=== PATIENT | male | born 1950 | race Caucasian/White ===

== ENCOUNTER 2018-10-02 10:59 | Emergency (ER) | payer MEDICARE, OTHER ==
[2018-10-02 11:32] VITALS: BP 134/73
--- NOTE | 2018-10-02 12:00 | ED ---
Respiratory - HPI Summary HPI Summary: 68 yr old male with the complaint of sore throat and coughing. Coughing productive of some yellow sputum. No drooling, no SOB. He has some chills but no fever. Onset of symptoms two days ago. - History of Current Complaint Chief Complaint: UCGeneralIllness Stated Complaint: HEADACHE,CONGESTION,SORE THROAT Time Seen by Provider: 10/02/18 11:44 Pain Intensity: 3 - Allergy/Home Medications Allergies/Adverse Reactions: Allergies Allergy/AdvReac Type Severity Reaction Status Date / Time cephalexin Allergy Swelling Verified 10/02/18 11:28 ciprofloxacin Allergy Swelling Verified 10/02/18 11:28 cobalt Allergy Swelling Verified 10/02/18 11:28 metronidazole Allergy Swelling Verified 10/02/18 11:28 potassium Allergy Swelling Verified 10/02/18 11:28 Home Medications: Home Medications Ibuprofen 400 mg PO Q5H 10/02/18 [History Confirmed 10/02/18] Omeprazole 20 mg PO DAILY 10/02/18 [History Confirmed 10/02/18] Propranolol HCl 80 mg PO DAILY 10/02/18 [History Confirmed 10/02/18] guaiFENesin [Mucinex] 600 mg PO DAILY 10/02/18 [History Confirmed 10/02/18] PMH/Surg Hx/FS Hx/Imm Hx Endocrine/Hematology History: Denies: Hx Diabetes, Hx Thyroid Disease Cardiovascular History: Denies: Hx Hypertension Respiratory History: Denies: Hx Asthma - Surgical History Surgery Procedure, Year, and Place: fingers, hernia, tonsils Infectious Disease History: No Infectious Disease History: Denies: Traveled Outside the [place] in Last 30 Days - Family History Known Family History: Positive: None - Social History Occupation: Employed Full-time Alcohol Use: Daily Substance Use Type: Reports: None Smoking Status (MU): Never Smoked Tobacco Review of Systems Positive: Sore Throat Positive: Cough All Other Systems Reviewed And Are Negative: Yes Physical Exam Triage Information Reviewed: Yes Vital Signs On Initial Exam: Initial Vitals Temp Pulse Resp BP Pulse Ox 97.4 F 64 15 134/73 98 10/02/18 11:21 10/02/18 11:21 10/02/18 11:21 10/02/18 11:21 10/02/18 11:21 Vital Signs Reviewed: Yes Appearance: Positive: Well-Appearing, No Pain Distress Skin: Positive: Warm, Skin Color Reflects Adequate Perfusion Head/Face: Positive: Normal Head/Face Inspection Eyes: Positive: EOMI ENT: Positive: Pharyngeal erythema, TMs normal. Negative: Nasal congestion, Nasal drainage Neck: Positive: Nontender Respiratory/Lung Sounds: Positive: Clear to Auscultation, Breath Sounds Present Cardiovascular: Positive: RRR. Negative: Murmur Abdomen Description: Positive: Nontender Musculoskeletal: Positive: Strength/ROM Intact Neurological: Positive: Sensory/Motor Intact, Alert, Oriented to Person Place, Time, CN Intact II-III Psychiatric: Positive: Normal - Helper Coma Scale Best Eye Response: 4 - Spontaneous Best Motor Response: 6 - Obeys Commands Best Verbal Response: 5 - Oriented Coma Scale Total: 15 Diagnostics - Vital Signs Vital Signs Temp Pulse Resp BP Pulse Ox 10/02/18 11:21 97.4 F 64 15 134/73 98 - Laboratory Lab Statement: Any lab studies that have been ordered have been reviewed, and results considered in the medical decision making process. Disposition - Course Course Of Treatment: 68 yr old male with URI symptoms. DC home. FU with PMD. - Diagnoses Provider Diagnoses: Upper respiratory infection Discharge - Sign-Out/Discharge Documenting (check all that apply): Patient Departure All imaging exams completed and their final reports reviewed: No Studies - Discharge Plan Condition: Good Disposition: HOME Patient Education Materials: Upper Respiratory Infection (ED) Referrals: Beltran Falcon MD [Primary Care Provider] - - Billing Disposition and Condition Condition: GOOD Disposition: Home
== END 2018-10-02 12:35 | disposition home or self-care (01) ==
LOC: UCCORT 10:59
DX: J06.9 Acute upper respiratory infection, unspecified (principal); L23.0 Allergic contact dermatitis due to metals; Z88.1 Allergy status to other antibiotic agents; Z88.8 Allergy status to other drugs, medicaments and biological substances; Z72.89 Other problems related to lifestyle
CPT/HCPCS: 99201; G0463